=== PATIENT | female | born 1995 | race Caucasian/White ===

== ENCOUNTER 2022-03-09 10:47 | Emergency (ER) | payer SELFPAY ==
--- NOTE | 2022-03-09 11:08 | EDPHYS ---
Physician Documentation [facility] Name: Radha Cordoba Age: 27 yrs Sex: Female : 1995 Arrival Date: 03/09/2022 Time: 10:50 Bed External Waiting Private MD: ED Physician Du Wiseman HPI: 03/09 11:13 This 27 yrs old Female presents to ER via Ambulatory with complaints of Can't Hear Out pm1 Of Left Ear. 11:13 The patient presents with pain. The complaints affect the left ear. Onset: The pm1 symptoms/episode began/occurred yesterday. Modifying factors: The symptoms are alleviated by nothing, the symptoms are aggravated by nothing. Associated signs and symptoms: Pertinent positives: difficulty hearing from left ear, Pertinent negatives: fever. Severity of symptoms: in the emergency department the symptoms are worse. The patient has not experienced similar symptoms in the past. The patient has not recently seen a physician. 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 - Social history:: Smoking status: Reported history of juuling and/or vaping. Patient uses alcohol, occasionally. ROS: 11:13 Constitutional: Negative for fever, chills, and weight loss. pm1 11:13 Neck: Negative for injury, pain, and swelling, Cardiovascular: Negative for chest pain, palpitations, and edema, Respiratory: Negative for shortness of breath, cough, wheezing, and pleuritic chest pain. 11:13 Skin: Negative for injury, rash, and discoloration, Neuro: Negative for headache, weakness, numbness, tingling, and seizure. 11:13 ENT: Positive for ear pain, Negative for drainage from ear(s). 11:13 Abdomen/GI: Negative for nausea and vomiting. 11:13 All other systems are negative. Exam: 11:13 Constitutional: This is a well developed, well nourished patient who is awake, alert, pm1 and in no acute distress. Head/Face: Normocephalic, atraumatic. 11:13 Skin: Warm, dry with normal turgor. Normal color with no rashes, no lesions, and no evidence of cellulitis. MS/ Extremity: Pulses equal, no cyanosis. Neurovascular intact. Full, normal range of motion. 11:13 ENT: External ear(s): no acute changes, Ear canal(s): no acute changes, TM's: bulging, on the left, erythema, that is moderate, on the left, Examination of the other ear shows no obvious abnormality. 11:13 Neck: Exam negative for acute changes, ROM/movement: no acute changes. 11:13 Cardiovascular: Exam negative for acute changes, Rate: normal, Rhythm: regular, Pulses: no pulse deficits are appreciated. 11:13 Respiratory: Exam negative for acute changes, respiratory distress, shortness of breath. 11:13 Neuro: Exam negative for acute changes, Orientation: is normal, Mentation: is normal, Motor: is normal, moves all fours, Gait: is steady, at a normal pace, without difficulty. Vital Signs: 11:02 Pulse 91; Resp 17; Temp 97.8; Pulse Ox 100% ; Weight 68.04 kg; Height 5 ft. 3 in. ap3 (160.02 cm); 11:05 BP 123 / 86; ap3 11:02 Body Mass Index 26.57 (68.04 kg, 160.02 cm) ap3 MDM: 11:06 Data reviewed: vital signs. Data interpreted: Pulse oximetry: on room air is 100 %. pm1 Interpretation: normal. Counseling: I had a detailed discussion with the patient and/or guardian regarding: the historical points, exam findings, and any diagnostic results supporting the discharge/admit diagnosis, radiology results, the need for outpatient follow up, an ENT specialist, to return to the emergency department if symptoms worsen or persist or if there are any questions or concerns that arise at home. 11:07 Patient medically screened. pm1 11:10 ED course: PMPaware reviewed. pm1 Administered Medications: 11:24 Drug: HYDROcodone-acetaminophen 5 mg-325 mg 1 tabs Route: PO; ss 11:25 Follow up: Response: Medication administered at discharge. ss Disposition: 18:48 Co-signature as Attending Physician, Du Wiseman MD. rn Disposition Summary: 03/09/22 11:07 Discharge Ordered Location: Home pm1 Problem: new pm1 Symptoms: have improved pm1 Condition: Stable pm1 Diagnosis - Otitis media, unspecified, left ear pm1 Followup: pm1 - With: Emergency Department - When: As needed - Reason: Worsening of condition Followup: pm1 - With: Private Physician - When: 2 - 3 days - Reason: Recheck today's complaints, Continuance of care, Re-evaluation by your physician Discharge Instructions: - Discharge Summary Sheet pm1 - Otitis Media, Adult pm1 Forms: - Medication Reconciliation Form pm1 - Thank You Letter pm1 - Antibiotic Education pm1 - Prescription Opioid Use pm1 - Work release form Prescriptions: - Augmentin 875-125 mg Oral Tablet - take 1 tablet by ORAL route every 12 hours for 10 days; 20 tablet; Refills: 0, pm1 Product Selection Permitted - Tylenol-Codeine #3 300 mg-30 mg Oral - take 2 tablet by ORAL route every 6 hours As needed; 12 tablet; Refills: 0, pm1 Product Selection Permitted Signatures: Du Wiseman MD MD rn Smirch, Shelby, RN RN ss Nahid South, [place] NURSE INTERN pm1 Alison Guzmán RN RN ap3
--- NOTE | 2022-03-09 11:08 | ER ---
Nurse's Notes [facility] Name: Radha Cordoba Age: 27 yrs Sex: Female : 1995 Arrival Date: 03/09/2022 Time: 10:50 Bed External Waiting Private MD: Diagnosis: Otitis media, unspecified, left ear Presentation: 03/09 11:02 Chief complaint: Patient states: approx 0100 her left ear began to hurt, then could no ap3 longer hear out of it. Coronavirus screen: At this time, the client does not indicate any symptoms associated with coronavirus-19. Ebola Screen: No symptoms or risks identified at this time. Initial Sepsis Screen: Does the patient meet any 2 criteria? No. Patient's initial sepsis screen is negative. Does the patient have a suspected source of infection? No. Patient's initial sepsis screen is negative. Risk Assessment: Do you want to hurt yourself or someone else? Patient reports no desire to harm self or others. Onset of symptoms was March 09, 2022. 11:02 Method Of Arrival: Ambulatory ap3 11:02 Acuity: ZACHERY 4 ap3 Triage Assessment: 11:05 General: Appears in no apparent distress. Behavior is calm, cooperative. Pain: ap3 Complains of pain in left ear. Neuro: Level of Consciousness is awake, alert, obeys commands, Oriented to person, place, time, situation. Cardiovascular: Patient's skin is warm and dry. Respiratory: Airway is patent Respiratory effort is even, unlabored. 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 - Social history:: Smoking status: Reported history of juuling and/or vaping. Patient uses alcohol, occasionally. Screenin:06 Abuse screen: Denies threats or abuse. Nutritional screening: No deficits noted. ap3 Tuberculosis screening: No symptoms or risk factors identified. Fall Risk None identified. Assessment: 11:24 General: Appears in no apparent distress. comfortable, Behavior is calm, cooperative. ss Neuro: Level of Consciousness is awake, alert, obeys commands, Oriented to person, place, time, situation. Cardiovascular: Capillary refill < 3 seconds is brisk in bilateral fingers. Respiratory: Airway is patent Respiratory effort is even, unlabored, Respiratory pattern is regular, symmetrical. EENT: Oral mucosa is moist. Derm: Skin is intact, is healthy with good turgor, Skin is pink, warm \T\ dry. normal. Vital Signs: 11:02 Pulse 91; Resp 17; Temp 97.8; Pulse Ox 100% ; Weight 68.04 kg; Height 5 ft. 3 in. ap3 (160.02 cm); 11:05 BP 123 / 86; ap3 11:02 Body Mass Index 26.57 (68.04 kg, 160.02 cm) ap3 ED Course: 10:50 Patient arrived in ED. rg4 11:00 Nahid South NP is PHCP. pm1 11:00 Du Wiseman MD is Attending Physician. pm1 11:04 Triage completed. ap3 11:06 Arm band placed on right wrist. ap3 11:06 Adult w/ patient. ap3 11:06 No provider procedures requiring assistance completed. Patient did not have IV access ap3 during this emergency room visit. 11:24 Alisia Villanueva, LEVI is Primary Nurse. ss Administered Medications: 11:24 Drug: HYDROcodone-acetaminophen 5 mg-325 mg 1 tabs Route: PO; 11:25 Follow up: Response: Medication administered at discharge. Medication: 11:06 VIS not applicable for this client. ap3 Outcome: 11:07 Discharge ordered by . pm1 11:24 Discharged to home ambulatory. 11:24 Condition: good 11:24 Discharge instructions given to patient, Instructed on discharge instructions, follow up and referral plans. Demonstrated understanding of instructions, follow-up care, Prescriptions given X 2. 11:25 Patient left the ED. Signatures: Alisia Villanueva RN RN Nahid South NP [employer]PER[employer]OR [employer] pm1 Ana Cristina Singleton rg4 Alison Guzmán RN RN ap3
[2022-03-09] MEDS ORDERED: HYDROCODONE/APAP 5/325 MG TAB ONE (11:22)
[2022-03-09 11:46] VITALS: TEMP 97.8; O2SAT 100
[2022-03-09 11:52] VITALS: BP 123/86
== END 2022-03-09 11:25 | disposition home or self-care (01) ==
LOC: ER 10:47
DX: H66.92 Otitis media, unspecified, left ear (principal)
CPT/HCPCS: 99283

== ENCOUNTER 2022-08-03 01:24 | Emergency (ER) | payer SELFPAY ==
--- NOTE | 2022-08-03 02:42 | EDPHYS ---
Physician Documentation [facility] Name: Radha Cordoba Age: 27 yrs Sex: Female : 1995 Arrival Date: 08/03/2022 Time: 02:26 Bed Waiting Private MD: ED Physician Ge Zuñiga HPI: 08/03 02:37 This 27 yrs old Female presents to ER via Unassigned with complaints of Ear Pain, Sore cp Throat. 02:37 The patient presents with pain, that is acute. The complaints affect the right ear and cp left ear. Onset: The symptoms/episode began/occurred 1 day(s) ago. Associated signs and symptoms: Pertinent positives: fever, sore throat, cough, Pertinent negatives: sinus trouble, vomiting. Severity of symptoms: in the emergency department the symptoms are unchanged despite home interventions. Historical: - Allergies: 02:46 No Known Allergies; kd3 - Immunization history:: Adult Immunizations up to date. - Social history:: Smoking status: unknown. ROS: 02:38 Eyes: Negative for injury, pain, redness, and discharge. cp 02:38 ENT: Positive for ear pain, sore throat, Negative for drainage from ear(s), difficulty swallowing, difficulty handling secretions. 02:38 Respiratory: Positive for cough. 02:38 Abdomen/GI: Negative for vomiting, diarrhea, constipation. 02:38 Neuro: Positive for headache, Negative for altered mental status, weakness. 02:38 All other systems are negative. Exam: 02:39 Head/Face: Normocephalic, atraumatic. cp 02:39 Constitutional: The patient appears in no acute distress, alert, awake, non-toxic, well developed, well nourished. 02:39 Eyes: Periorbital structures: appear normal, Conjunctiva: normal, no exudate, no injection, Sclera: no appreciated abnormality, Lids and lashes: appear normal, bilaterally. 02:39 ENT: External ear(s): pain with movement, that is mild, bilaterally, Ear canal(s): clear, TM's: erythema, that is moderate, bilaterally, Nose: is normal, Mouth: Lips: moist, Oral mucosa: moist, Posterior pharynx: Airway: no evidence of obstruction, patent, Tonsils: bilaterally enlarged, with erythema, no exudate, Uvula: midline, erythema, that is mild, exudate, is not appreciated. 02:39 Neck: ROM/movement: is normal, is supple, no range of motions limitations, no meningismus, no nuchal rigidity, Lymph nodes: no appreciated lymphadenopathy. 02:39 Chest/axilla: Inspection: normal. 02:39 Cardiovascular: Rate: normal. cp 02:39 Respiratory: the patient does not display signs of respiratory distress, Respirations: cp normal, no use of accessory muscles, no retractions, labored breathing, is not present, Breath sounds: are clear throughout, no decreased breath sounds. 02:39 Skin: no rash present. Vital Signs: 02:42 BP 98 / 68; Pulse 83; Resp 18; Temp 98.7(O); Pulse Ox 98% on R/A; Weight 58.97 kg; kd3 MDM: 02:41 Patient medically screened. cp 02:41 Data reviewed: vital signs, nurses notes. cp 02:41 Differential diagnosis: otitis media, otitis externa, ruptured TM, cerumen impaction. cp Counseling: I had a detailed discussion with the patient and/or guardian regarding: the historical points, exam findings, and any diagnostic results supporting the discharge/admit diagnosis, to return to the emergency department if symptoms worsen or persist or if there are any questions or concerns that arise at home. Administered Medications: No medications were administered Disposition: 07:02 Co-signature as Attending Physician, Ge Zuñiga MD I agree with the assessment and rt plan of care. Disposition Summary: 08/03/22 02:41 Discharge Ordered Location: Home cp Problem: new cp Symptoms: are unchanged cp Condition: Stable cp Diagnosis - Otitis media, unspecified, bilateral cp - Cough cp Followup: cp - With: Private Physician - When: 2 - 3 days - Reason: Worsening of condition Discharge Instructions: - Discharge Summary Sheet cp - Otitis Media, Adult cp - Cough, Adult cp Forms: - Medication Reconciliation Form cp - Thank You Letter cp - Antibiotic Education cp - Prescription Opioid Use cp Prescriptions: - Bromfed DM 2-30-10 mg/5 mL Oral syrup - take 10 milliliter by ORAL route every 6 hours; 180 milliliter; Refills: 0, cp Product Selection Permitted - Augmentin 875-125 mg Oral Tablet - take 1 tablet by ORAL route every 12 hours for 10 days; 20 tablet; Refills: 0, cp Product Selection Permitted Signatures: Indra Jon PA PA cp Brenna Azevedo, RN RN kd3 Ge Zuñiga MD MD rt
--- NOTE | 2022-08-03 02:55 | ER ---
Nurse's Notes [facility] Name: Radha Cordoba Age: 27 yrs Sex: Female : 1995 Arrival Date: 08/03/2022 Time: 02: Bed Waiting Private MD: Diagnosis: Otitis media, unspecified, bilateral;Cough Presentation: 08/03 02:42 Chief complaint: Patient states: both of my ears hurt since yesterday and i have a sore kd3 throat. no sick contacts at home. Coronavirus screen: Vaccine status: Patient reports receiving the 2nd dose of the covid vaccine. Ebola Screen: No symptoms or risks identified at this time. Initial Sepsis Screen: Does the patient meet any 2 criteria? No. Patient's initial sepsis screen is negative. Does the patient have a suspected source of infection? No. Patient's initial sepsis screen is negative. Risk Assessment: Do you want to hurt yourself or someone else? Patient reports no desire to harm self or others. Onset of symptoms was August 03, 2022. 02:42 Method Of Arrival: Ambulatory kd3 02:42 Acuity: ZACHERY 4 kd3 Triage Assessment: 02:46 General: Appears in no apparent distress. Behavior is calm, cooperative. Pain: kd3 Complains of pain in left ear and right ear. 02:54 EENT: Throat is reddened. kd3 Historical: - Allergies: 02:46 No Known Allergies; kd3 - Immunization history:: Adult Immunizations up to date. - Social history:: Smoking status: unknown. Screenin:54 Abuse screen: Denies threats or abuse. Denies injuries from another. Nutritional kd3 screening: No deficits noted. Tuberculosis screening: No symptoms or risk factors identified. Fall Risk None identified. Vital Signs: 02:42 BP 98 / 68; Pulse 83; Resp 18; Temp 98.7(O); Pulse Ox 98% on R/A; Weight 58.97 kg; kd3 ED Course: 02:26 Patient arrived in ED. bp1 02:33 Indra Jon PA is PHCP. cp 02:33 Ge Zuñiga MD is Attending Physician. cp 02:46 Triage completed. kd3 02:46 Arm band placed on right wrist. kd3 02:54 Patient has correct armband on for positive identification. kd3 02:54 No provider procedures requiring assistance completed. Patient did not have IV access kd3 during this emergency room visit. 02:55 Brenna Azevedo, RN is Primary Nurse. kd3 Administered Medications: No medications were administered Medication: 02:54 VIS not applicable for this client. kd3 Outcome: 02:41 Discharge ordered by . demario 02:54 Discharged to home ambulatory. kd3 02:54 Condition: stable 02:54 Discharge instructions given to patient, family, Instructed on discharge instructions, follow up and referral plans. medication usage, Demonstrated understanding of instructions, follow-up care, medications. 02:55 Patient left the ED. kd3 Signatures: Indra Jon PA PA cp Paniauga, Brittany bp1 Doucette, Kyli, RN RN kd3
[2022-08-03 07:09] VITALS: BP 98/68; TEMP 98.7; O2SAT 98
== END 2022-08-03 02:55 | disposition home or self-care (01) ==
LOC: ER 01:24
DX: H66.93 Otitis media, unspecified, bilateral (principal); R05.9 Cough, unspecified
CPT/HCPCS: 99281